=== PATIENT | female | born 1995 | race Caucasian/White ===

== ENCOUNTER 2017-12-12 11:52 | Emergency (ER) | END 2017-12-12 17:33 | disposition home or self-care (01) ==

== ENCOUNTER 2018-05-24 15:53 | Outpatient (CLI) | END 2018-05-24 17:50 | disposition home or self-care (01) ==

== ENCOUNTER 2019-02-06 23:19 | Emergency (ER) | payer MEDICAID ==
[~2019-02-06] VITALS: Ht 160 cm; Wt 86.3 kg
[~2019-02-06 23:19] MED LIST: PREN1TAB79 PO
[2019-02-06 23:24] VITALS: Ht 160 cm; Wt 86.3 kg
[2019-02-07 05:58] VITALS: BP 123/87; PULSE 88; RESP 18
[2019-02-07] MEDS ORDERED: DIPHENHYDRAMINE 25 MG CAP PO ONE (06:00)
--- NOTE | 2019-02-07 06:43 | ERD ---
ER Documentation Chief Complaint Chief Complaint shortness of breath x 3 days. lungs clear, no wheezing in triage HPI This is a 23-year-old female presents to the ED with intermittent episodes of shortness of breath and chest tightness times 3 days. Patient does state that she has been under a lot of stress recently which seems to exacerbate her symptoms. She reports palpitations and chest tightness. She denies any diaphoresis, numbness, tingling, nausea, vomiting or any other symptoms. Patient has no established history of anxiety. She is currently breast-feeding and has not been taking any medications. ROS All systems reviewed and are negative except as per history of present illness. Medications Home Meds Reported Medications Vit W-Ca,Fe,FA(<1 mg) ( Vitamins) 1 Each Tablet, 1 EACH PO 05/24/18 Allergies Allergies: Coded Allergies: No Known Allergy (Unverified , 11/15/15) PMhx/Soc History of Surgery: No Anesthesia Reaction: No Hx Neurological Disorder: No Hx Respiratory Disorders: No Hx Cardiac Disorders: No Hx Psychiatric Problems: No Hx Miscellaneous Medical Probl: No Hx Alcohol Use: No Hx Substance Use: No Hx Tobacco Use: No Physical Exam Vitals Vital Signs Date Temp Pulse Resp B/P (MAP) Pulse Ox O2 O2 Flow FiO2 Time Delivery Rate 02/07/19 88 18 123/87 97 Room Air 05:58 (99) 02/06/19 98.3 103 20 132/89 100 23:24 (103) Physical Exam Const: + Mildly anxious appearing Head: Atraumatic Eyes: Normal Conjunctiva ENT: Normal External Ears, Nose and Mouth. Neck: Full range of motion. No meningismus. Resp: Clear to auscultation bilaterally Cardio: Regular rate and rhythm, no murmurs Abd: Soft, non tender, non distended. Normal bowel sounds Skin: No petechiae or rashes Back: No midline or flank tenderness Ext: No cyanosis, or edema Neur: Awake and alert Psych: Normal Mood and Affect Results 24 hrs Current Medications Medications Dose Sig/Bryant Start Time Status Last (Trade) Ordered Route PRN Stop Time Admin Dose Reason Admin 25 mg ONCE ONCE 02/07/19 DC 02/07/19 Diphenhydrami PO 06:00 02/07/19 05:54 ne HCl 06:01 (Benadryl) Procedures/MDM PROCEDURES: 12-lead EKG interpretation as interpeted by supervising physician, Dr. Mon. Normal Sinus Rhythm with ventricular rate of 66 beats per minute Normal axis Normal intervals No acute ST or T wave changes suggestive of acute ischemia or STEMI. ED COURSE: The patient was given Benadryl The medication was well tolerated and the patient had market improvement in symptoms. The patient remained stable throughout ED course. MEDICAL DECISION MAKING: This is a 23-year-old female who presents with shortness of breath and chest tightness. Differential diagnosis includes but is not limited to acute myocardial infarction, pulmonary embolism, abdominal aortic aneurysm/dissection, pneumothorax and many others. I have reviewed the patients clinical risk factors and EKG. Vital signs are stable, physical exam is normal. EKG as reviewed by my surviving physician, Dr. Mon is normal. History and physical most consistent with anxiety type reaction. Patient is breast-feeding and was given Benadryl here. I recommended follow-up with her primary care provider in 2 days, otherwise return here for any new or worsening symptoms. PRESCRIPTIONS: None SPECIALIST FOLLOW UP RECOMMENDED: None Patient has been advised to follow up with primary care in 1-2 days. Departure Diagnosis: Primary Impression: Shortness of breath Condition: Stable Patient Instructions: Coping with Shortness of Breath: Controlling Stress Referrals: COMMUNITY CLINICS YOU HAVE RECEIVED A MEDICAL SCREENING EXAM AND THE RESULTS INDICATE THAT YOU DO NOT HAVE A CONDITION THAT REQUIRES URGENT TREATMENT IN THE EMERGENCY DEPARTMENT. FURTHER EVALUATION AND TREATMENT OF YOUR CONDITION CAN WAIT UNTIL YOU ARE SEEN IN YOUR DOCTORS OFFICE WITHIN THE NEXT 1-2 DAYS. IT IS YOUR RESPONSIBILITY TO MAKE AN APPOINTMENT FOR FOLOW-UP CARE. IF YOU HAVE A PRIMARY DOCTOR --you should call your primary doctor and schedule an appointment IF YOU DO NOT HAVE A PRIMARY DOCTOR YOU CAN CALL OUR PHYSICIAN REFERRAL HOTLINE AT IF YOU CAN NOT AFFORD TO SEE A PHYSICIAN YOU CAN CHOSE FROM THE FOLLOWING [facility] CLINICS [facility] [address] [facility]. [facility] [address] [facility]. [facility] [address] [facility]. [facility] [address] [facility]. [facility] [address] [facility] [facility] [address] [facility]. [facility] YOU HAVE RECEIVED A MEDICAL SCREENING EXAM AND THE RESULTS INDICATE THAT YOU DO NOT HAVE A CONDITION THAT REQUIRES URGENT TREATMENT IN THE EMERGENCY DEPARTMENT. FURTHER EVALUATION AND TREATMENT OF YOUR CONDITION CAN WAIT UNTIL YOU ARE SEEN IN YOUR DOCTORS OFFICE WITHIN THE NEXT 1-2 DAYS. IT IS YOUR RESPONSIBILITY TO MAKE AN APPOINTMENT FOR FOLOW-UP CARE. IF YOU HAVE A PRIMARY DOCTOR --you should call your primary doctor and schedule and appointment IF YOU DO NOT HAVE A PRIMARY DOCTOR YOU CAN CALL OUR PHYSICIAN REFERRAL HOTLINE AT . IF YOU CAN NOT AFFORD TO SEE A PHYSICIAN YOU CAN CHOSE FROM THE FOLLOWING [facility] INSTITUTIONS: [facility] [address] [place] [address] [facility] [address] [place] [address] [facility] [address] [place] [address] [facility] Additional Instructions: Your EKG is normal. His symptoms can be related to anxiety or stress. He did not need any further workup here. Follow-up with your regular doctor, otherwise return here for any new or worsening symptoms. FLOR DOS SANTOS PA-C Feb 07, 2019 06:43
== END 2019-02-07 05:59 | disposition home or self-care (01) ==
LOC: FTE 23:19
DX: R06.02 Shortness of breath (principal)
CPT/HCPCS: Z7502; Z7610

== ENCOUNTER 2019-07-08 19:39 | Emergency (ER) | payer SELFPAY ==
[~2019-07-08] VITALS: Ht 157.5 cm; Wt 86.6 kg
[~2019-07-08 19:39] MED LIST changes: +BUTA1CAP38 PO; +ONDA8TAB14 PO
[2019-07-08 19:48] VITALS: Ht 157.5 cm; Wt 86.6 kg
[2019-07-08] MEDS ORDERED: ONDANSETRON (ODT) 4 MG TAB ODT STA (19:51)
[2019-07-08] MEDS ORDERED: ACETAMINOPHEN 325 MG TAB PO ONE (20:00)
[2019-07-08 21:42] VITALS: BP 131/78; PULSE 100; RESP 16
== END 2019-07-08 21:43 | disposition home or self-care (01) ==
LOC: FTE 19:39
DX: R07.89 Other chest pain (principal); R51 Headache
CPT/HCPCS: 71045; 81003; 81025; 93005